=== PATIENT | male | born 1965 | race Caucasian/White ===

== ENCOUNTER 2016-11-02 16:19 | Inpatient (IN) | payer MEDICARE, OTHER ==
[~2016-11-02] VITALS: Ht 172.7 cm; Wt 87.3 kg
[~2016-11-02 16:19] MED LIST: CLON-429 PO; DIVA125T14 PO; TRIH2TAB2 PO; [UNRECOGNIZED DRUG - CODE] PO
[2016-11-02] MEDS ORDERED: SOD CHLORIDE 0.9% 1,000 ML IV STA (16:48)
[2016-11-02] MEDS ORDERED: LORAZEPAM 2 MG INJ IV ONE (17:00)
[2016-11-02 17:04] LABS: ADD SCAN DIFF NO
[2016-11-02 17:05] LABS: BASOPHILS % 0.5 % (0.0-2.0); EOSINOPHILS # 0.1 10^3/ul (0.0-0.5); EOSINOPHILS % 0.7 % (0.0-7.0); HEMATOCRIT 35.4 % (42.0-52.0); HEMOGLOBIN 12.7 g/dl (14.0-18.0); LYMPHOCYTES # 1.7 10^3/ul (0.8-2.9); LYMPHOCYTES % 20.6 % (15.0-51.0); MEAN CORPUSCULAR HEMOGLOBIN 31.1 pg (29.0-33.0); MEAN CORPUSCULAR HGB CONC 35.9 g/dl (32.0-37.0); MEAN CORPUSCULAR VOLUME 86.8 fl (82.0-101.0); MEAN PLATELET VOLUME 8.2 fl (7.4-10.4); MONOCYTE # 0.9 10^3/ul (0.3-0.9); MONOCYTES % 10.8 % (0.0-11.0); NEUTROPHIL # 5.6 10^3/ul (1.6-7.5); PLATELET COUNT 331 10^3/UL (140-415); RED BLOOD COUNT 4.08 10^6/ul (4.70-6.10); RED CELL DISTRIBUTION WIDTH 11.4 % (11.5-14.5); WHITE BLOOD COUNT 8.3 10^3/ul (4.8-10.8)
[2016-11-02 17:28] LABS: ALANINE AMINOTRANSFERASE 36 IU/L (13-69); ALBUMIN 4.6 g/dl (3.3-4.9); ALBUMIN/GLOBULIN RATIO 1.58; ALKALINE PHOSPHATASE 65 IU/L (42-121); ANION GAP 16 (8-16); ASPARTATE AMINO TRANSFERASE 25 IU/L (15-46); BLOOD UREA NITROGEN 7 mg/dl (7-20); CALCIUM 9.1 mg/dl (8.4-10.2); CARBON DIOXIDE 24 mmol/L (21-31); CHLORIDE 87 mmol/L (97-110); CREATININE 0.68 mg/dl (0.61-1.24); GLUCOSE 126 mg/dl (70-220); POTASSIUM 3.7 mmol/L (3.5-5.1); SODIUM 123 mmol/L (135-144); TOTAL PROTEIN 7.5 g/dl (6.1-8.1)
[2016-11-02] MEDS ORDERED: SOD CHLORIDE 0.9% 1,000 ML IV ONE (18:00)
[2016-11-02 18:06] LABS: TROPONIN-I < 0.012 ng/ml (0.00-0.12)
[2016-11-02 19:26] LABS: CALCIUM 8.2 mg/dl (8.4-10.2); CREATININE 0.63 mg/dl (0.61-1.24); POTASSIUM 4.1 mmol/L (3.5-5.1)
[2016-11-02] MEDS ORDERED: NACL 3% 200 ML IV SCH (20:00)
[2016-11-02] MEDS ORDERED: ASPIRIN 325 MG TAB PO ONE (20:00)
[2016-11-02 20:42] VITALS: TEMP 98.2
[2016-11-02 21:11] VITALS: PULSE 85
[2016-11-02 21:23] VITALS: BP 128/72; RESP 19
[2016-11-02] MEDS ORDERED: SOD CHLORIDE 0.9% 1,000 ML IV SCH (21:29)
[2016-11-02] MEDS ORDERED: ZOLPIDEM 5 MG TAB PO PRN (21:30)
[2016-11-02] MEDS ORDERED: ACETAMINOPHEN 325 MG TAB PO PRN (21:30)
[2016-11-02] MEDS ORDERED: NACL 0.9% 3 ML SYG IV SCH (21:30)
[2016-11-02] MEDS ORDERED: morphine 2 MG INJ IV PRN (21:30)
[2016-11-02] MEDS ORDERED: NITROGLYCERIN (SL) 0.4 MG TAB SL PRN (21:30)
[2016-11-02] MEDS ORDERED: LORAZEPAM 0.5 MG TAB PO PRN (21:30)
[2016-11-02] MEDS ORDERED: MAGNESIUM HYDROXIDE 30ML CUP PO PRN (21:30)
[2016-11-02] MEDS ORDERED: HYDROCODONE/APAP (5/325) TAB PO PRN (21:30)
[2016-11-02] MEDS ORDERED: DOCUSATE SODIUM 100 MG CAP PO PRN (21:30)
[2016-11-02] MEDS ORDERED: ONDANSETRON 4 MG INJ IV PRN (21:30)
--- NOTE | 2016-11-02 21:32 | ERA ---
ER Documentation Chief Complaint Date/Time DATE: 11/02/16 TIME: 21:23 Chief Complaint AP X 1 DAY HPI 51-year-old man triaged as abdominal pain although patient states he "had a heart attack" last night he complains of pressure-like nonexertional nonradiating chest pain which occurred last night lasting for a few minutes and then again this morning. He states he also feels weak. He denies shortness of breath, no fevers or chills, no vomiting or diarrhea. ROS All systems reviewed and are negative except as per history of present illness. Medications Home Meds Reported Medications Clonazepam* (Klonopin*) 0.5 Mg Tab, 0.5 MG PO DAILY 12/08/12 Trihexyphenidyl Hcl* (Artane*) 2 Mg Tab, 2 MG PO DAILY 12/08/12 Divalproex Sodium* (Depakote*) 125 Mg Tablet.dr, 125 MG PO DAILY 12/08/12 Risperidone* (Risperidone* M-Tab) 0.5 Mg Tab.rapdis, 0.5 MG PO DAILY 12/08/12 Allergies Allergies: Coded Allergies: No Known Allergy (Unverified , 11/02/16) PMhx/Soc Psychiatric disorder History of Surgery: No Anesthesia Reaction: No Hx Neurological Disorder: No Hx Respiratory Disorders: No Hx Cardiac Disorders: No Hx Psychiatric Problems: Yes (PARANOID SCHIZOPHRENIA) Hx Miscellaneous Medical Probl: No Hx Alcohol Use: No Hx Substance Use: No Hx Tobacco Use: No Smoking Status: Former smoker FmHx Family History: No diabetes Physical Exam Vitals Vital Signs Date Time Temp Pulse Resp B/P Pulse Ox O2 Delivery O2 Flow Rate FiO2 11/02/16 16:21 98.2 83 18 147/94 97 Physical Exam GENERAL: Well-developed, well-nourished, appears dehydrated, afebrile, anxious HEENT: Dry mucous membranes, pink conjunctiva, no cervical spine tenderness or step-off deformities, no goiter, no jaundice or icterus, extraocular movements intact without pain. No submandibular induration, and no pharyngeal erythema NEURO: Patient able to answer simple questions and follow simple commands, eyes are closed, there is no focal deficits or facial asymmetry CARDIAC: Regular rate and rhythm, no murmurs rubs or gallops LUNGS: Clear bilaterally no wheezing crackles or stridor ABDOMEN: Soft nontender, no guarding, no rigidity, no rebound, no psoas sign no obturator sign. Normoactive bowel sounds SKIN: Warm and dry to touch, no abrasions, contusions, or hematomas, no lacerations, no ecchymosis, no target lesions, and without ulcers EXTREMITIES: No clubbing cyanosis or edema, calves are bilaterally symmetrical, no Homans sign, no popliteal cord sign. Distal pulses equal and bilateral PSYCH: Appears anxious Result Diagram: 11/02/16 1600 11/02/16 1845 Results 24 hrs Laboratory Tests Test 11/02/16 16:00 11/02/16 18:45 White Blood Count 8.310^3/ul Red Blood Count 4.0810^6/ul Hemoglobin 12.7g/dl Hematocrit 35.4% Mean Corpuscular Volume 86.8fl Mean Corpuscular Hemoglobin 31.1pg Mean Corpuscular Hemoglobin Concent 35.9g/dl Red Cell Distribution Width 11.4% Platelet Count 24057^3/UL Mean Platelet Volume 8.2fl Neutrophils % 67.0% Lymphocytes % 20.6% Monocytes % 10.8% Eosinophils % 0.7% Basophils % 0.5% Nucleated Red Blood Cells % 0.0/100WBC Neutrophils # 5.610^3/ul Lymphocytes # 1.710^3/ul Monocytes # 0.910^3/ul Eosinophils # 0.110^3/ul Basophils # 0.010^3/ul Nucleated Red Blood Cells # 0.010^3/ul Sodium Level 123mmol/L 126mmol/L Potassium Level 3.7mmol/L 4.1mmol/L Chloride Level 87mmol/L 91mmol/L Carbon Dioxide Level 24mmol/L 26mmol/L Anion Gap 16 13 Blood Urea Nitrogen 7mg/dl 7mg/dl Creatinine 0.68mg/dl 0.63mg/dl Glucose Level 126mg/dl 81mg/dl Calcium Level 9.1mg/dl 8.2mg/dl Total Bilirubin 0.0mg/dl Direct Bilirubin 0.00mg/dl Indirect Bilirubin 0.0mg/dl Aspartate Amino Transf (AST/SGOT) 25IU/L Alanine Aminotransferase (ALT/SGPT) 36IU/L Alkaline Phosphatase 65IU/L Troponin I < 0.012ng/ml Total Protein 7.5g/dl Albumin 4.6g/dl Globulin 2.90g/dl Albumin/Globulin Ratio 1.58 Lipase 126U/L Current Medications Medications (Trade) Dose Ordered Sig/Mai Route PRN Reason Start Time Stop Time Status Last Admin Dose Admin Sodium Chloride (NS) 1,000 ml @ 1,000 mls/hr Q1H STAT IV 11/02/16 16:48 11/02/16 17:47 DC 11/02/16 17:16 Lorazepam 0.5 mg 0.5 mg ONCE ONCE IV 11/02/16 17:00 11/02/16 17:01 DC 11/02/16 17:16 Sodium Chloride (NS) 1,000 ml @ 1,000 mls/hr Q1H ONCE IV 11/02/16 18:00 11/02/16 18:59 DC 11/02/16 18:15 Procedures/MDM IV line was established patient was placed on school lunch monitor rhythm strip revealed a sinus rhythm at about 80 bpm with upright P and T waves. Patient was afebrile. EKG performed, read by me revealed a normal sinus rhythm at 77 bpm, left axis deviation, right ventricular conduction delay with a QRS duration of 104 ms, no concerning ST elevations or depressions noted. I administered 2 L normal saline intravenously for dehydration and the lorazepam 1 mg IV for initial anxiety and catatonia. Patient also received aspirin 325 mg p.o. for cardioprotective measures although he had no complaints of chest pain while in the CD. CBC was unremarkable, electrolytes reveal hyponatremia at 123, liver function tests normal, troponin negative. After IV fluids are completely administered I repeated the patient's sodium was still low at 126. I administered 3% hypertonic saline IV bolus for symptomatic hyponatremia. Patient will be admitted to telemetry setting for continued medical management cardiology consultation. Critical Care: Time: 32 minutes, this was time separate from other billable procedures. Treatments/Evaluations: Close monitoring and treatment of unstable vital signs, cardiorespiratory, and neurologic status, while maintaining tight balance of fluid, respiratory, and cardiac interventions. Departure Diagnosis: Primary Impression: Acute hyponatremia Additional Impressions: Dehydration Chest pain Qualified Code: R07.9 - Chest pain, unspecified type Condition: JULIANNE Mahajan MD Nov 02, 2016 21:31
[2016-11-02 21:53] VITALS: Ht 172.7 cm; Wt 87.3 kg
[2016-11-03] VITALS (12 sets, daily range): BP systolic 122–139; BP diastolic 63–92; PULSE 59–87; RESP 17–21
[2016-11-03] MEDS: PANTOPRAZOLE (EC) 40 MG TAB PO SCH (05:56)
[2016-11-03 07:31] LABS: ADD SCAN DIFF NO
[2016-11-03 07:56] LABS: BASOPHILS % 0.4 % (0.0-2.0); EOSINOPHILS # 0.1 10^3/ul (0.0-0.5); EOSINOPHILS % 1.2 % (0.0-7.0); HEMOGLOBIN 13.1 g/dl (14.0-18.0); LYMPHOCYTES # 1.8 10^3/ul (0.8-2.9); MEAN CORPUSCULAR HEMOGLOBIN 31.1 pg (29.0-33.0); MEAN CORPUSCULAR HGB CONC 35.4 g/dl (32.0-37.0); MEAN CORPUSCULAR VOLUME 87.9 fl (82.0-101.0); MEAN PLATELET VOLUME 8.4 fl (7.4-10.4); MONOCYTE # 0.8 10^3/ul (0.3-0.9); NEUTROPHIL # 4.5 10^3/ul (1.6-7.5); NEUTROPHILS % 62.1 % (39.0-77.0); PLATELET COUNT 368 10^3/UL (140-415); RED BLOOD COUNT 4.21 10^6/ul (4.70-6.10); RED CELL DISTRIBUTION WIDTH 11.6 % (11.5-14.5); RETICULOCYTE COUNT % 1.4 % (0.5-1.5); WHITE BLOOD COUNT 7.2 10^3/ul (4.8-10.8)
[2016-11-03 08:05] LABS: IRON 111 ug/dl (35-150)
[2016-11-03 08:07] LABS: ALBUMIN/GLOBULIN RATIO 1.33; BILIRUBIN,INDIRECT 0.2 mg/dl (0-1.1); BILIRUBIN,TOTAL 0.2 mg/dl (0.2-1.3); CALCIUM 9.5 mg/dl (8.4-10.2); CHOL/HDL RATIO 2.8 RATIO; CREATININE 0.64 mg/dl (0.61-1.24); POTASSIUM 4.1 mmol/L (3.5-5.1)
[2016-11-03 08:14] LABS: TOTAL IRON BINDING CAPACITY 288 ug/dl (241-421)
[2016-11-03 08:34] LABS: THYROID STIMULATING HORMONE 3.32 MIU/L (0.465-4.680)
[2016-11-03] MEDS: ASPIRIN 81 MG TAB PO SCH (09:00)
[2016-11-03] MEDS ORDERED: SALINE 0.65% 45 ML NAS SPRAY NASAL PRN (09:00)
[2016-11-03] MEDS: FLUTICASONE 0.05% 16 GM NAS SPRAY NASAL SCH (09:00)
[2016-11-03] MEDS: clonAZEPAM 0.5 MG TAB PO SCH (09:00)
[2016-11-03] MEDS: TRIHEXYPHENIDYL 2 MG TAB PO SCH (09:01)
[2016-11-03] MEDS: DIVALPROEX (EC) 125 MG TAB PO SCH (09:01)
[2016-11-03] MEDS: ENOXAPARIN 40 MG/0.4 ML SYG SC SCH (09:06)
--- NOTE | 2016-11-03 10:32 | HP ---
DATE OF ADMISSION: 11/02/2016 REASON FOR ADMISSION: Chest pain, rule out acute coronary syndrome, hyponatremia. HISTORY OF PRESENT ILLNESS: The patient is a 51-year-old male with history of paranoid sc hizophrenia who resides at the assisted living facility at [facility]. The patient states he was just recently [facility] after being [facility] for 8 days as he was admitted fo r his OCD. The history has history of paranoid schizophrenia. The patient was in the usual state o f health up until the day of admission when he stated that he had been experiencing chest pain that felt like a heart attack. The patient was sweating, anxious. He stated it happened the night befor e admission and then recurred. Otherwise, he denies any shortness of breath. He denies any fever o r chills. Denies any weakness or numbness. In the ER, he was evaluated. Initial troponin was nega tive. Sodium was remarkably low at 123. The patient was also anemic with hemoglobin of 12.7. The patient was hydrated and given 3% normal saline. It was decided to admit the patient to telemetry u [facility] for further care. Upon questioning, the patient appeared to be anxious, stated that he cannot l tani at the assisted living facility anymore, complaining about the residents, almost hyperventilatin g when he talks about it. The patient is admitted for further care. PAST MEDICAL HISTORY: Significant for paranoid schizophrenia, obsessive compulsive disorder. ALLERGIES: NO KNOWN DRUG ALLERGIES. SURGICAL HISTORY: Denies. SOCIAL HISTORY: The patient resides at the assisted living facility at [facility]. FAMILY HISTORY: Both parents are alive and healthy. SOCIAL HISTORY: Tobacco: He used to smoke about 3 packs a week, now less as it is too expensive fo r him. Alcohol and IV drug abuse denied. MEDICATIONS: Include the following 1. Clonazepam 0.5 daily. 2. Depakote 125 daily. 3. Risperidone 0.5 daily. 4. Artane 2 mg daily. ALLERGIES: NO KNOWN DRUG ALLERGIES. REVIEW OF SYSTEMS: Per HPI. The pain is described as chest pain lasting for seconds. Now denies a ny more chest pain. Denies any radiation. PHYSICAL EXAMINATION: VITAL SIGNS: Temperature is 97.8, pulse 60, respirations 18, blood pressure 125/75, saturation 96% on room air. GENERAL: No acute distress, anxious looking, slightly pale. HEENT: No JVD. No lymphadenopathy. CARDIOVASCULAR: S1 and S2, regular rate and rhythm. LUNGS: Clear bilaterally. ABDOMEN: Soft, nontender. EXTREMITIES: No clubbing, cyanosis, or edema. LABORATORY DATA: White count 7.2, hemoglobin 13.1, hematocrit 37, platelet count of 368. Neutrophi ls 62%, lymphocytes 25%. Serial troponin x3 negative. Sodium today is still pending. Yesterday, s odium went up from 123 to 126. Today, CMP is still pending. Chest x-ray was not done. EKG showed left anterior fascicular block, poor R-wave progression, probably normal variant, otherwise normal E KG. ASSESSMENT AND PLAN: This is a 51-year-old male with a history of paranoid schizophrenia who presented with chest pain and hyponatremia. 1. Chest pain. We will rule out acute coronary syndrome. Serial troponins are already negative. The patient will be monitored on telemetry unit for any arrhythmias. We will consult Cardiology. Elba gomez lipid panel. The patient was started on aspirin. May benefit from beta blockers if heart rate and blood pressure will permit. The patient is placed on Lovenox for DVT prophylaxis. His chest p ain may be secondary to panic attack which is most likely the etiology. 2. Psychiatric disorder. Resume all psych medications. We will try to obtain updated list 3. Hyponatremia. This may be secondary to drinking too much water versus dehydration versus other. The patient is hydrated gently with normal saline. Follow up sodium levels. Obtain chest x-ray. 4. Anemia. Check iron panel, B12, folic acid, reticulocyte count. The patient is definitely due f or colonoscopy next year as he will be 52 years old. The patient denies any bleeding. 5. We will consult high school social science teacher as the patient is unhappy at the facility where he resides. 6. Nasal congestion. Flonase will be prescribed and [place] spray nasal spray as well as it was albert mmended by his ENT physician which he had recently visited. 7. Anxiolytics p.r.n. will be given. We will follow closely. Dictated By: FREDERIC ARELLANO/MELISA Conf#: [id number] DID#: [id number]
--- NOTE | 2016-11-03 10:42 | RADRPT ---
PROCEDURE: XR Chest. CLINICAL INDICATION: Shortness of breath. Hyponatremia. TECHNIQUE: Single frontal view. COMPARISON: None. FINDINGS: The lungs are clear. The heart size is normal. There is no pleural effusion. There is no pneumothorax. IMPRESSION: 1. Normal chest radiograph. RPTAT: QQ .Jerald Reyes MD, MD Date Time Electronically viewed and signed by .Jerald Reyes MD, MD on 11/03/2016 10:42 .R/
--- NOTE | 2016-11-03 16:45 | CONS ---
DATE OF ADMISSION: 11/02/2016 DATE OF CONSULTATION: 11/03/2016 REASON FOR CONSULTATION: Chest pain. HISTORY OF PRESENT ILLNESS: Mr. Juarez is a 51-year-old gentleman with history of paranoid schiz ophrenic recently discharged [facility]. The patient developed shortness of breath and chest pain which he describes as located between the abdomen and his ribs and an empty feeling and i t is still present. In addition, the patient was noted to be hyponatremic on admission with presenting sodium of 123. PAST MEDICAL HISTORY: Paranoid schizophrenia, obsessive compulsive disorder. SOCIAL HISTORY: The patient lives in an assisted living facility. The patient is a smoker. MEDICATIONS: 1. Clonazepam. 2. Depakote. 3. Risperidone. 4. Artane. ALLERGIES: NO KNOWN ALLERGIES. REVIEW OF SYSTEMS: As per HPI. PHYSICAL EXAMINATION: GENERAL: He is in no distress. VITAL SIGNS: Temperature 97.8, pulse 87, blood pressure 122/78. NECK: No jugular venous distention. LUNGS: Clear. CARDIAC: Regular rate and rhythm. ABDOMEN: Soft, nontender, nondistended. EXTREMITIES: No clubbing, cyanosis, or edema. MEDICATIONS: Reviewed as previously stated. LABORATORY RESULTS: White count 7.2, hematocrit 37, platelet count 368. Sodium has improved to 138 . Troponin negative x2. BUN 7, creatinine 0.6. DIAGNOSTIC DATA: EKG shows sinus rhythm with no acute changes. ASSESSMENT: Extremely atypical chest pain, more consistent with panic attacks, given its location a nd the long persistent nature without elevation of troponins. At this time, did not think that further cardiac workup is necessary for further chest pain. Dictated By: IVORY MENDIOLA/MELISA Conf#: [id number] DID#: [id number]
[2016-11-03] MEDS ORDERED: TRAZ50TA18 PO (18:11)
[2016-11-03] MEDS ORDERED: OLAN5TAB5 PO (18:11)
[2016-11-03] MEDS ORDERED: FERR325T5 PO (18:11)
[2016-11-03] MEDS ORDERED: PARO20TA58 PO (18:11)
[2016-11-03] MEDS ORDERED: ESOM40CA PO (18:11)
[2016-11-03] MEDS ORDERED: TRIH5TAB PO (18:11)
[2016-11-03] MEDS ORDERED: OLAN10TA7 PO (18:11)
[2016-11-03] MEDS ORDERED: FOLI-49 PO (18:11)
[2016-11-03] MEDS ORDERED: HYDR-842 PO (18:11)
[2016-11-03] MEDS ORDERED: LORA10CA PO (18:11)
[2016-11-04] VITALS (9 sets, daily range): BP systolic 102–130; BP diastolic 57–82; PULSE 52–68; RESP 18–20
[2016-11-04] MEDS: PANTOPRAZOLE (EC) 40 MG TAB PO SCH (05:53)
[2016-11-04 08:40] LABS: CALCIUM 9.5 mg/dl (8.4-10.2); CREATININE 0.79 mg/dl (0.61-1.24); POTASSIUM 4.4 mmol/L (3.5-5.1)
[2016-11-04] MEDS: DIVALPROEX (EC) 125 MG TAB PO SCH (08:47)
[2016-11-04] MEDS: TRIHEXYPHENIDYL 2 MG TAB PO SCH (08:47)
[2016-11-04] MEDS: clonAZEPAM 0.5 MG TAB PO SCH (08:47)
[2016-11-04] MEDS: ASPIRIN 81 MG TAB PO SCH (08:47)
[2016-11-04] MEDS: FLUTICASONE 0.05% 16 GM NAS SPRAY NASAL SCH (08:47)
[2016-11-04] MEDS: ENOXAPARIN 40 MG/0.4 ML SYG SC SCH (08:48)
--- NOTE | 2016-11-04 14:00 | PDOCDIS ---
Discharge Instructions CONDITION Patient Condition: Stable HOME CARE INSTRUCTIONS: Diet Instructions: Reduced SodiumSpecial Diet: CARDIAC ACTIVITY: Activity Restrictions: Slowly Increase Activity FOLLOW UP/APPOINTMENTS Follow-up Plan follow up with PMD within 1-2 weeks, any change in condition call 911 FREDERIC TAN MD Nov 04, 2016 14:00
[2016-11-04] MEDS ORDERED: ASPI81TA3 PO (14:07)
[2016-11-04] MEDS ORDERED: SODI44SP19 NASAL (14:08)
[2016-11-04] MEDS ORDERED: FLUT16SP17 NASAL (14:08)
[2016-11-04] MEDS ORDERED: OLANZAPINE 5 MG TAB PO SCH (21:00)
[2016-11-04] MEDS ORDERED: TRIHEXYPHENIDYL 5 MG TAB PO SCH (21:00)
[2016-11-04] MEDS ORDERED: traZODone 50 MG TAB PO SCH (21:00)
[2016-11-04] MEDS ORDERED: hydrOXYzine HCL 25 MG TAB PO SCH (21:00)
[2016-11-05] MEDS ORDERED: OLANZAPINE 5 MG TAB PO SCH (09:00)
[2016-11-05] MEDS ORDERED: LORATADINE 10 MG TAB PO SCH (09:00)
[2016-11-05] MEDS ORDERED: FOLIC ACID 1 MG TAB PO SCH (09:00)
[2016-11-05] MEDS ORDERED: PAROXETINE 20 MG TAB PO SCH (09:00)
== END 2016-11-04 16:37 | disposition home or self-care (01) | DRG 641 ==
LOC: E/R 16:19 → MS4 19:44
PROVIDERS: ADMIT Internal Medicine; ATTEND Internal Medicine
DX: E87.1 Hypo-osmolality and hyponatremia (principal); E86.0 Dehydration; J44.9 Chronic obstructive pulmonary disease, unspecified; F20.0 Paranoid schizophrenia; F42.9 Obsessive-compulsive disorder, unspecified; R07.9 Chest pain, unspecified; D64.9 Anemia, unspecified; R07.89 Other chest pain; K21.9 Gastro-esophageal reflux disease without esophagitis
CPT/HCPCS: 36415; 71010; 80048; 80053; 80061; 80076; 82607; 83036; 83540; 83690; 84443; 84484; 85025; 85045; 93005; 96374; J1650; J2060; J7030